=== PATIENT | male | born 1985 | race Caucasian/White ===

== ENCOUNTER 2018-01-29 01:24 | Emergency (ER) | payer SELFPAY ==
[~2018-01-29] VITALS: Ht 188 cm; Wt 204.1 kg
[2018-01-29 01:39] VITALS: BP 140/70
[2018-01-29] MEDS ORDERED: CHERATUSSIN AC118 M1 PO (04:14)
[2018-01-29] MEDS ORDERED: IBUPROFEN600 M1 PO (04:14)
--- NOTE | 2018-01-29 04:16 | ED INFLUENZA/URI COMPLAINT ---
History of Present Illness General Chief Complaint: Upper Respiratory Sx/Fever Stated Complaint: CHEST CONGESTION,COUGH,CHILLS Source: patient Exam Limitations: no limitations Vital Signs & Intake/Output Vital Signs & Intake/Output Vital Signs Date Time Temp Pulse Resp B/P B/P Pulse O2 O2 Flow FiO2 Mean Ox Delivery Rate 01/29 0139 99.8 81 22 140/70 98 Room Air 01/29 0138 99.8 Allergies Coded Allergies: penicillin V (UNKNOWN 01/29/18) Triage Note: 33M REPORTS CONGESTION, SOB WITH EXERTION, ATTEMPTED OTC MEDS WITHOUT RELIEF (BENADRYL DIMEATAP AND ROBITUSSIN). EYES ARE RED, +RHINORRHEA. TEMP 99.8. INTERMITTENT DRY COUGH, +NAUSEA -VOMITING. +ACHES Triage Nurses Notes Reviewed? yes HPI: Patient presents for evaluation of nearly constant but certainly worsening cold symptoms that began about 2 days ago. Patient states that he is suffering chest and nasal congestion, headache, occasional bilateral ear pain, dry coughing nausea and vomiting. Vision states he has a number of ill contacts but denies recent travel. He likewise denies rashes diarrhea or dysuria. He has tried a multitude of [id number] cough and cold medications without improvement. Past History Travel History Traveled to [place] past 21 day No Medical History Any Pertinent Medical History? see below for history Gastrointestinal: CHOLY Surgical History Surgical History: non-contributory Psychosocial History What is your primary language Dominican Tobacco Use: Never used Family History Hx Contributory? No Review of Systems Review of Systems Constitutional: Reports: see HPI. EENTM: Reports: see HPI. Respiratory: Reports: no symptoms. Cardiovascular: Reports: no symptoms. GI: Reports: no symptoms. Genitourinary: Reports: no symptoms. Musculoskeletal: Reports: no symptoms. Skin: Reports: no symptoms. Neurological/Psychological: Reports: no symptoms. Hematologic/Endocrine: Reports: no symptoms. Immunologic/Allergic: Reports: no symptoms. All Other Systems: Reviewed and Negative Physical Exam Physical Exam Ears, Nose, Throat: SEE BELOW Comments: Gen.: Well-nourished, well-developed, no acute respiratory distress. Morbidly obese Head: Normocephalic, atraumatic. Eyes: Normal inspection bilaterally Ears: Normal inspection bilaterally Nose: Normal inspection Throat/mouth : Moist mucosa , no oropharyngeal erythema or exudates Face: Nontender to percussion Neck: Supple, full range of motion, no goiter Heart: Regular rate and rhythm, no murmurs rubs or gallops Lungs: Clear to auscultation bilaterally with normal air entry Chest: Nontender Back: Normal range of motion Abdomen: Soft, nontender, nondistended, normal bowel sounds Extremities: Normal range of motion grossly, equal radial pulses, no cyanosis clubbing or edema Neurologic: Cranial nerves grossly intact, speech is clear Skin: warm and dry Psychiatric: Calm, cooperative, no apparent delusions or hallucinations Core Measures Sepsis Present: No Sepsis Focused Exam Completed? No Progress Differential Diagnosis: influenza, pneumonia, pharyngitis, sinusitis, VIRAL SYNDROME Plan of Care: Orders Procedure Date/time Status RAPID VIRAL INFLUENZA A 01/29 134 Complete Microbiology 01/30 136 NASOPHARYN: Influenza Virus A & B Rapid Smear - COMP Initial ED EKG: none Departure Departure Disposition: HOME OR SELF CARE Condition: Stable Clinical Impression Primary Impression: Viral syndrome Referrals: Denis Fernandez DO (PCP/Family) Additional Instructions: Cheratussin before meals as needed for cough or cold symptoms. Ibuprofen as prescribed for fever or muscle aches chills or pain. Drink lots of fluids. Follow-up with your primary care physician in 5-7 days if not improving. Return if any concerns or sudden worsening. Thank you for choosing the [facility] for your care. It was a pleasure to serve you today. Ramy Alarcon M.D. [facility] Departure Forms: Customer Survey General Discharge Information Prescriptions: Current Visit Scripts Codeine Phosphate/Guaifenesi (Cheratussin AC Syrup) 5-10 ML PO Q6P PRN COUGH/ COLD SYMPTOMS #200 ML Ibuprofen 1 TAB PO Q6P PRN ACHES/PAINS/FEVER #20 TAB with food
== END 2018-01-29 04:21 ==
LOC: ERH 01:24
DX: B34.9 Viral infection, unspecified (principal)
CPT/HCPCS: 87804; 87804-59